=== PATIENT | female | born 1965 | race Two or more races ===

== ENCOUNTER 2020-09-07 10:30 | Emergency (ER) | payer SELFPAY ==
[~2020-09-07] VITALS: Ht 154.9 cm; Wt 47.6 kg
--- NOTE | 2020-09-07 10:30 | NUR ---
PT BIBRA 80 FROM WORK C/O ALLERGIC REACTION "IM RED ALL OVER AND MY VOICE CHANGED" PT IS AAOX4, NOT IN RESPIRATORY DISTRESS, HOOKED TO [facility], KEPT RESTED AND COMFORTABLE. WILL CONTINUE TO MONITOR.
--- NOTE | 2020-09-07 10:42 | NUR ---
PT SEEN AND EXAMINED BY .
[2020-09-07] MEDS ORDERED: IV NS 0.9% 1,000 ML BAG IV ONE (11:00)
[2020-09-07] MEDS ORDERED: EPIN0.3P3 IJ (11:58)
[2020-09-07] MEDS ORDERED: PRED20TA GT (11:58)
[2020-09-07] MEDS ORDERED: FAMO-131 PO (11:58)
[2020-09-07] MEDS ORDERED: predniSONE 20 MG TABLET PO ONE (12:00)
[2020-09-07] MEDS ORDERED: predniSONE 20 MG TABLET ONE (12:13)
--- NOTE | 2020-09-07 12:37 | NUR ---
Patient discharged to home in stable condition. Written and verbal after care instructions given. Patient verbalizes understanding of instruction.IV removed. Catheter intact and site benign. Pressure and 4x4 applied to site. No bleeding noted. Pt ambulatory with a steady gait
[2020-09-07 12:38] VITALS: BP 109/62
== END 2020-09-07 12:41 | disposition home or self-care (01) ==
LOC: ER 10:32
DX: L50.0 Allergic urticaria (principal); G43.909 Migraine, unspecified, not intractable, without status migrainosus
CPT/HCPCS: 71045; 99283; J7512; J7030